=== PATIENT | female | born 1975 | race Caucasian/White ===

== ENCOUNTER 2018-01-08 22:57 | Emergency (ER) | payer SELFPAY ==
[~2018-01-08] VITALS: Ht 165.1 cm; Wt 63.5 kg
[2018-01-08 23:05] VITALS: BP 78/53
--- NOTE | 2018-01-08 23:29 | PHYS DOC ---
Adult General Chief Complaint Chief Complaint: SUSHILA HPI HPI Patient is a 42 year old female who presents with 9/10 sharp constant right shoulder pain that has been going on for a couple days. 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 She states she was seen at [facility] two weeks ago, had xray of the shoulder which showed the tumor is back. She states she has a scheduled MRI at [facility] in a couple days but her pain got worse today and Tramadol was not touching her pain, also the pain made her anxiety worse. Denies any injury. Review of Systems Review of Systems Constitutional: Denies fever or chills [] Musculoskeletal: Reports right shoulder pain Integument: Denies rash or skin lesions [] Neurologic: Denies headache, focal weakness or sensory changes [] All other systems were reviewed and found to be within normal limits, except as documented in this note. Current Medications Current Medications Current Medications Medications (Trade) Dose Ordered Sig/Guicho Start Time Stop Time Status Last Admin Dose Admin Acetaminophen/ Hydrocodone Bitart (Lortab 5/325) 1 tab 1X ONCE 01/08/18 23:30 01/08/18 23:34 DC Alprazolam (Xanax) 0.5 mg 1X ONCE 01/08/18 23:30 01/08/18 23:33 DC Allergies Allergies Allergies Coded Allergies Type Severity Reaction Last Updated Verified codeine Allergy Mild HIVES 01/08/18 Yes meperidine Allergy Mild HIVES 01/08/18 Yes morphine Allergy Mild HIVES 01/08/18 Yes Physical Exam Physical Exam Constitutional: Well developed, well nourished, no acute distress, non-toxic appearance. [] Skin: Warm, dry, no erythema, no rash. [] Back: No tenderness, no CVA tenderness. [] Extremities: Right shoulder with no obvious deformity, old healed surgical incision noted on the right anterior shoulder. Tenderness diffusely throughout the shoulder, full passive as well as active range of motion to the right shoulder. Adequate radial medial and ulnar sensation to the right upper extremity. +2 radial pulse. Cap refill less than 2 seconds the right fingers. Neurologic: Alert and oriented X 3, normal motor function, normal sensory function, no focal deficits noted. [] Psychologic: Flat affect. Tearful, appears anxious EKG EKG [] Radiology/Procedures Radiology/Procedures [] Course & Med Decision Making Course & Med Decision Making Pertinent Labs and Imaging studies reviewed. (See chart for details) This is a 42-year-old female patient presenting to the ED today complaining of right shoulder pain, has history of right shoulder tumor which was removed a couple years ago, per her statement she had an x-ray done at a different facility which showed the tumor is back. She is scheduled to do an MRI in a couple days. Patient is in no distress. She appears very anxious. She states her anxiety level went up as the pain went up. She is on tramadol at home with no relief. She was given prescription for Medrol dose pack and Robaxin for home use. Follow-up with her own doctor in 1-2 weeks. Shira Disclaimer Shira Disclaimer This electronic medical record was generated, in whole or in part, using a voice recognition dictation system. Departure Departure Impression: Primary Impression: Right shoulder pain Additional Impression: Anxiety Disposition: HOME, SELF-CARE Condition: STABLE Patient Instructions: Anxiety and Panic Attacks, [id number]-[id number], Shoulder Pain, [id number] Additional Instructions: You were evaluated in the emergency room for shoulder pain and anxiety. We sent you home with pain medications, take them as needed. Follow-up with your own doctor as soon as he can. Ensure you get the MRI done of your right shoulder as scheduled. Scripts Methylprednisolone (MEDROL) 4 Mg Tab.ds.pk 1 PKG PO UD, #1 PKG Prov: SUKUMAR ALVAREZ CHIEF TECHNOLOGIST 01/08/18 Methocarbamol (ROBAXIN) 500 Mg Tablet 1 TAB PO TID, #30 TAB Prov: SUKUMAR ALVAREZ CHIEF TECHNOLOGIST 01/08/18 Problem Qualifiers Primary Impression: Right shoulder pain Chronicity: acute Qualified Codes: M25.511 - Pain in right shoulder SUKUMAR ALVAREZ COREY Jan 08, 2018 23:29
[2018-01-08] MEDS ORDERED: HYDROcodone/APAP 5/325MG 1 TAB TABLET PO ONE (23:30)
[2018-01-08] MEDS ORDERED: ALPRAZolam 0.5 MG TABLET PO ONE (23:30)
[2018-01-08] MEDS ORDERED: METH4TAB2 PO (23:43)
[2018-01-08] MEDS ORDERED: METH-37 PO (23:43)
== END 2018-01-09 00:25 | disposition home or self-care (01) ==
LOC: ER 22:57
DX: M25.511 Pain in right shoulder (principal); F41.9 Anxiety disorder, unspecified; Z88.5 Allergy status to narcotic agent; Z88.8 Allergy status to other drugs, medicaments and biological substances
CPT/HCPCS: 99283

== ENCOUNTER 2019-05-18 09:04 | Day surgery (SDC) | payer OTHER ==
[~2019-05-18] VITALS: Ht 162.6 cm; Wt 52.6 kg
[~2019-05-18 09:04] MED LIST: ALBU2.5V8 INH; ALPR0.5T6 PO; BUPIVACAINE-EPI 0.25%-1:200000 MPF 30 ML VIAL. ONE; IV RINGERS,LACTATED 1000ML 1,000 ML IV SCH; METH-37 PO; METH4TAB2 PO; ONDANSETRON PF 4 MG/2 ML VIAL. IV PRN; PROC10TA57 PO; PROCHLORPERAZINE 10 MG/2 ML VIAL. IV PRN; TRAM100T12 PO; TRAM50TA PO; VILA10TA PO; ceFAZolin SODIUM IV Push 1 GM VIAL. IVP PRN
[2019-05-18] MEDS ORDERED: PROPOFOL 20 ML IV ONE (09:16)
[2019-05-18] MEDS ORDERED: DEXAMETHASONE SOD PHOS 4 MG/ML VIAL ONE (09:16)
[2019-05-18] MEDS ORDERED: ONDANSETRON PF 4 MG/2 ML VIAL. ONE (09:16)
[2019-05-18] MEDS ORDERED: fentaNYL PF VIAL 100 MCG/2 ML VIAL ONE ×2 (09:17→10:59)
[2019-05-18 10:03] LABS: CREATININE 0.6 mg/dL (0.6-1.0); GFR 108.1; POTASSIUM 3.9 mmol/L (3.5-5.1)
[2019-05-18 10:09] LABS: ALBUMIN 3.8 g/dL (3.4-5.0); ALBUMIN/GLOBULIN RATIO 1.3 (1.0-1.7); TOTAL BILIRUBIN 0.3 mg/dL (0.2-1.0); TOTAL PROTEIN 6.8 g/dL (6.4-8.2)
[2019-05-18] MEDS ORDERED: fentaNYL PF VIAL 100 MCG/2 ML VIAL IVP ONE ×2 (11:15→11:30)
[2019-05-18] MEDS ORDERED: HYDROcodone/APAP 5/325MG 1 TAB TABLET PO ONE (11:15)
[2019-05-18] MEDS ORDERED: IV RINGERS,LACTATED 1000ML 1,000 ML IV SCH (11:24)
[2019-05-18] MEDS ORDERED: ONDANSETRON PF 4 MG/2 ML VIAL. IV PRN (11:30)
[2019-05-18] MEDS ORDERED: LIDOCAINE 1% PF 2 ML VIAL. ID PRN (11:30)
[2019-05-18] MEDS ORDERED: PROCHLORPERAZINE 10 MG/2 ML VIAL. IV PRN (11:30)
--- NOTE | 2019-05-18 11:40 | PDOC4 ---
Operative Note Operative Note Date of Procedure: May 18, 2019 Pre-Op Diagnosis: 1. 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 Neoplasm of uncertain behavior - D48.9 right leg Post-Op Diagnosis: 1. 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 Neoplasm of uncertain behavior - D48.9 right leg Procedure: CPT 89540 Excision, tumor, soft tissue of leg or ankle area, subfascial (eg, intramuscular) less than 5 cm Surgeon: Franklin Lopez MD Anesthesia: General EBL: 25 mL Specimens Obtained: right leg mass Complications: none Drains: none Findings: firm mass or nodule, attached to the the tibialis anterior fascia and intramuscular at the tibialis anterior muscle. Indications for Procedure: This patient is a 44 -year-old with a painful mass on her right leg, which has not resolved with observation. A CT scan confirms a calcified lesion within the soft tissues of the tibialis anterior, with associated nerve symptoms. I discussed with her the potential risks of infection, neurovascular injury particularly numbness in the branches of the peroneal nerve, or motor weakness of the tibialis anterior with resection. The lesion is painful, bothersome when any clothes or bed sheets touch it, and I do recommend excisional biopsy. We discussed the risks benefits and alternatives and she desires to proceed. Procedure in Detail: The patient was identified in the preoperative holding area. The correct right lower extremity was marked by me. The patient was taken to the operating room where general anesthetic was used. The patient was positioned supine on the operating table. A tourniquet was applied to the upper portion of the limb. Preoperative antibiotics were given intravenously. A timeout procedure was performed. The limb was prepared circumferentially with ChloraPrep solution. An impervious stockinette and Coban were used over the foot and ankle. Sterile draping was used. An Esmarch bandage was used to exsanguinate the limb and the tourniquet was inflated to 300 mmHg. A 6 cm longitudinal incision was made centered over the palpable mass. Sharp dissection was used and Bovie electrocautery was used as needed for hemostasis. There was a firm nodule attached to the tibialis anterior fascia. I used a 15 blade scalpel and resected the lesion with a 5 mm margin including portion of the tibialis anterior fascia. The specimen was removed and sent in formalin for permanent pathology. There is no definitive nerve involvement despite her symptoms. A brief Betadine lavage was used followed by copious saline irrigation. The tourniquet was released. Bovie electrocautery was used for hemostasis. The skin edges were injected with 0.25% bupivacaine with epinephrine. The incision was irrigated a final time with saline. The incision was closed in layers with 3-0 Vicryl inverted interrupted sutures in the subcutaneous tissues. 3-0 Prolene horizontal mattress sutures were placed in the skin. Xeroform and a bulky s terile dressing were applied. Needle and sponge counts were correct area there were no apparent complications. FRANKLIN LOPEZ MD May 18, 2019 11:40
[2019-05-18 11:45] VITALS: BP 96/64
[2019-05-18] MEDS ORDERED: PROM25TA10 PO (11:45)
[2019-05-18] MEDS ORDERED: HYDR-2765 PO (11:45)
[2019-05-19 01:08] LABS: HEMOGLOBIN A1C 5.5 % (4.8-5.6)
--- NOTE | 2019-05-19 20:06 | PATHOLOGY ---
[facility] Accession Number: [id number] . 01 Material submitted: . leg - SOFT TISSUE MASS, RIGHT LEG. Modifiers: right . 01 Clinical history: . rt leg mass . 02 Diagnosis: Fibroadipose tissue, right leg soft tissue mass, excision: - Focal nodular calcinosis. . (JPM:mml; 05/19/2019) [facility] 05/19/2019 1904 Local . 02 Electronically signed: . Castillo Manzo MD, Pathologist NPI- [id number] . 01 Gross description: . The specimen is received in formalin, labeled "Marva Sepulveda, right leg mass" and consists of a segment of yellow lobulated tissue measuring 2.8 x 1.5 x 0.5 cm. Present within is a 0.5 x 0.5 cm area of calcification. The calcification is submitted in A1 following decalcification and the remainder of the specimen in A2. (SDY; 05/18/2019) SYU/SYU 05/18/2019 1725 Local . 02 Pathologist provided ICD-10: M79.89, R22.41 . 02 CPT . 898670, [id number] Specimen Comment: A courtesy copy of this report has been sent to [phone] Specimen Comment: Report sent to DR HERNÁNDEZ Performed at: 01 [facility] [address] [facility] [address], [place] [id number] MD Samy Romero MD Phone: [phone] Performed at: 02 [facility] [address] [place], [place] [id number] MD Castillo Manzo MD Phone: [phone]
== END 2019-05-18 12:03 | disposition home or self-care (01) ==
LOC: SURG 09:04
PROVIDERS: ATTEND Orthopaedic Surgery
DX: D48.1 Neoplasm of uncertain behavior of connective and other soft tissue (principal); M79.89 Other specified soft tissue disorders; J43.9 Emphysema, unspecified; F41.9 Anxiety disorder, unspecified; F32.9 Major depressive disorder, single episode, unspecified; Z87.891 Personal history of nicotine dependence; Z87.442 Personal history of urinary calculi; Z79.899 Other long term (current) drug therapy; Z98.890 Other specified postprocedural states; Z90.710 Acquired absence of both cervix and uterus; Z72.89 Other problems related to lifestyle
CPT/HCPCS: 27619; 36415; 80053; 82306; 83036; A7015; J0690; J1100; J2405; J2704; J3010

== ENCOUNTER 2019-10-12 11:30 | Emergency (ER) | payer OTHER ==
[~2019-10-12] VITALS: Ht 162.6 cm; Wt 50.0 kg
[~2019-10-12 11:30] MED LIST changes: -BUPIVACAINE-EPI 0.25%-1:200000 MPF 30 ML VIAL. ONE; +HYDR-2765 PO; -IV RINGERS,LACTATED 1000ML 1,000 ML IV SCH; -ONDANSETRON PF 4 MG/2 ML VIAL. IV PRN; -PROCHLORPERAZINE 10 MG/2 ML VIAL. IV PRN; +PROM25TA10 PO; -ceFAZolin SODIUM IV Push 1 GM VIAL. IVP PRN
[2019-10-12] MEDS ORDERED: oxyCODONE/APAP 5/325 1 TAB TABLET PO ONE (12:15)
--- NOTE | 2019-10-12 12:51 | RAD ---
CT HEAD WITHOUT CONTRAST 10/12/2019 12:01 PM Indication: Reason: FELL WHILE INTOXICATED, HEADACHE AND NECK PAIN / Spl. Instructions: / History: Comparison: None Procedure: Multidetector CT imaging of the head was performed without the administration of contrast. Findings: There is no evidence of acute intracranial hemorrhage. There is no evidence of acute territorial infarction. Please note that CT is limited for evaluation of acute ischemia. No mass effect or midline shift is identified . The ventricles and basilar cisterns have an appropriate appearance. No abnormal extra-axial fluid collections are seen. No acute osseous changes are identified. Metopic suture incidentally noted. Impression: No evidence of acute intracranial abnormality CT cervical spine without contrast. 10/12/2019 12:01 PM Indication:Reason: FELL WHILE INTOXICATED, HEADACHE AND NECK PAIN / Spl. Instructions: / History: Comparison Study: None Technique: Multidetector CT imaging of the cervical spine was obtained without administration of contrast. Findings: There is no evidence of acute fracture or alignment abnormality of the cervical. Vertebral body heights and disc spaces are maintained. The atlantoaxial articulation is within normal limits. There is no prevertebral soft tissue swelling. Soft tissues are otherwise unremarkable. No bony compromise of the spinal canal is seen. Impression: No evidence of acute fracture or alignment abnormality of the cervical spine CT DOSING PQRS STATEMENT: One or more of the following individualized dose reduction techniques were utilized for this examination: 1. Automated exposure control 2. Adjustment of the mA and/or kV according to patient size 3. Use of iterative reconstruction technique Electronically signed by: Jarod Richey MD (10/12/2019 12:48 PM) [id number]
--- NOTE | 2019-10-12 12:58 | RAD ---
5 views including frontal view of the chest bilateral views of each rib 10/12/2019 1:18 PM Indication: Reason: FELL WHILE INTOXICATED, RIBS PAIN, CHEST PAIN, SOA / Spl. Instructions: / History: Comparison: None Findings there is blunting of the right costophrenic angle which could represent small effusion versus elevation of right hemidiaphragm. There is no pneumothorax.. The cardiomediastinal silhouette and pulmonary vasculature are within normal limits. No displaced rib fractures are identified. No acute osseous changes are appreciated. No focal infiltrates are seen. Bullous changes in the lung apices noted. Impression: 1. No evidence of displaced rib fracture 2. Blunting of the right costophrenic angle which could be chronic/due to elevation of the hemidiaphragm, versus a small effusion. Consider follow-up two-view chest radiograph as clinically indicated Electronically signed by: Jarod Richey MD (10/12/2019 12:55 PM) [id number]
--- NOTE | 2019-10-12 13:08 | PHYS DOC ---
Past Medical History Past Medical History: Alcoholism, Anxiety, COPD Additional Past Medical Histor: BHASKAR-DANLOS SYNDROME, R SHOULDER "TUMOR" , Past Surgical History: Cholecystectomy, Hysterectomy Additional Past Surgical Histo: "NICKED BOWEL" W HYSTERECTOMY AND F/U SURG. Smoking Status: Current Every Day Smoker Alcohol Use: Heavy Drug Use: None General Adult EDM: Chief Complaint: RIB PAIN HPI: HPI: Patient is a 44 year old female who presented to ER today for evaluation of bilateral rib pain pain since October 05. Patient says she was alcoholic, she was sober for about 6 months then on October 05 she relapsed and went and drink bunch of alcohol. She woke up on the floor the next day did not remember have what happened. Patient noticed to have bruising on over chest and her leg area, she also, headache and neck pain. Patient continue to have ribs pain whenever she takes a deep breath so she came here for evaluation. Patient also complained of headache and neck pain, denies any abdominal pain, no nausea vomiting. Review of Systems: Review of Systems: Constitutional: Denies fever or chills. [] Eyes: Denies change in visual acuity. [] HENT: Denies nasal congestion or sore throat. [] Respiratory: Denies cough or shortness of breath. [Positive for bilateral rib pain Cardiovascular: Denies chest pain or edema. [] GI: Denies abdominal pain, nausea, vomiting, bloody stools or diarrhea. [] : Denies dysuria. [] Musculoskeletal: Denies back pain or joint pain. [] Integument: Denies rash. [] Neurologic: Positive for headache, no focal weakness or sensory changes. [] Endocrine: Denies polyuria or polydipsia. [] Lymphatic: Denies swollen glands. [] Psychiatric: Denies depression or anxiety. [] Heart Score: Risk Factors: Risk Factors: DM, Current or recent (<one month) smoker, HTN, HLP, family history of CAD, obesity. Risk Scores: Score 0 - 3: 2.5% MACE over next 6 weeks - Discharge Home Score 4 - 6: 20.3% MACE over next 6 weeks - Admit for Clinical Observation Score 7 - 10: 72.7% MACE over next 6 weeks - Early Invasive Strategies Current Medications: Current Medications Medications (Trade) Dose Ordered Sig/Guicho Start Time Stop Time Status Last Admin Dose Admin Oxycodone/ Acetaminophen (Percocet 5/325) 1 tab 1X ONCE 10/12/19 12:15 10/12/19 12:16 DC 10/12/19 12:12 1 TAB Allergies: Allergies: Allergies Coded Allergies Type Severity Reaction Last Updated Verified Sulfa (Sulfonamide Antibiotics) Allergy Severe RASH, FLU LIKE SYMPTOMS 05/17/19 Yes codeine Allergy Intermediate HIVES 05/17/19 Yes meperidine Allergy Intermediate HIVES 05/17/19 Yes morphine Allergy Intermediate HIVES 05/17/19 Yes Physical Exam: PE: Constitutional: Well developed, well nourished, no acute distress, non-toxic appearance. [] HENT: Normocephalic, atraumatic, bilateral external ears normal, oropharynx moist, no oral exudates, nose normal. [] Eyes: PERRLA, EOMI, conjunctiva normal, no discharge. [] Neck: Normal range of motion, no tenderness, supple, no stridor. [] Cardiovascular:Heart rate regular rhythm, no murmur [] Lungs & Thorax: Bilateral breath sounds clear to auscultation . Bilateral lower lateral rib tender to palpation, there is no crepitus, no bony deformity. Abdomen: Bowel sounds normal, soft, no tenderness, no masses, no pulsatile masses. [] Skin: Warm, dry, no erythema, no rash. [] Back: No tenderness, no CVA tenderness. [] Extremities: No tenderness, no cyanosis, no clubbing, ROM intact, no edema. [] Neurologic: Alert and oriented X 3, normal motor function, normal sensory function, no focal deficits noted. [] Psychologic: Affect normal, judgement normal, mood normal. [] Current Patient Data: Vital Signs: Vital Signs Date Time Temp Pulse Resp B/P (MAP) Pulse Ox O2 Delivery O2 Flow Rate FiO2 10/12/19 12:12 18 10/12/19 11:46 98.8 77 118/62 (80) 98 Room Air 98.8 EKG: EKG: [] Radiology/Procedures: Radiology/Procedures: [][facility] [address] [place] [address] IMAGING REPORT Signed PATIENT: JUANITO PONCE ACCOUNT: [id number] : 1975 LOCATION: ER AGE: 44 SEX: F EXAM STATUS: REG ER ORD. PHYSICIAN: ARIANA HINTON DO REASON: FELL WHILE INTOXICATED, RIBS PAIN, CHEST PAIN, SOA PROCEDURE: RIBS BILAT & PA CXR 4+V 5 views including frontal view of the chest bilateral views of each rib 10/12/2019 1:18 PM Indication: Reason: FELL WHILE INTOXICATED, RIBS PAIN, CHEST PAIN, SOA / Spl. Instructions: / History: Comparison: None Findings there is blunting of the right costophrenic angle which could represent small effusion versus elevation of right hemidiaphragm. There is no pneumothorax.. The cardiomediastinal silhouette and pulmonary vasculature are within normal limits. No displaced rib fractures are identified. No acute osseous changes are appreciated. No focal infiltrates are seen. Bullous changes in the lung apices noted. Impression: 1. No evidence of displaced rib fracture 2. Blunting of the right costophrenic angle which could be chronic/due to elevation of the hemidiaphragm, versus a small effusion. Consider follow-up two-view chest radiograph as clinically indicated Electronically signed by: Jarod Olson MD (10/12/2019 12:55 PM) [id number] DICTATED and SIGNED BY: JAROD OLSON MD DATE: 10/12/19 1255 [facility] [address] [place] [address] IMAGING REPORT Signed PATIENT: JUANITO PONCE ACCOUNT: [id number] : 1975 LOCATION: ER AGE: 44 SEX: F EXAM STATUS: REG ER ORD. PHYSICIAN: ARIANA HINTON DO REASON: FELL WHILE INTOXICATED, HEADACHE AND NECK PAIN PROCEDURE: CT HEAD AND CERVICAL SPINE WO CT HEAD WITHOUT CONTRAST 10/12/2019 12:01 PM Indication: Reason: FELL WHILE INTOXICATED, HEADACHE AND NECK PAIN / Spl. Instructions: / History: Comparison: None Procedure: Multidetector CT imaging of the head was performed without the administration of contrast. Findings: There is no evidence of acute intracranial hemorrhage. There is no evidence of acute territorial infarction. Please note that CT is limited for evaluation of acute ischemia. No mass effect or midline shift is identified . The ventricles and basilar cisterns have an appropriate appearance. No abnormal extra-axial fluid collections are seen. No acute osseous changes are identified. Metopic suture incidentally noted. Impression: No evidence of acute intracranial abnormality CT cervical spine without contrast. 10/12/2019 12:01 PM Indication:Reason: FELL WHILE INTOXICATED, HEADACHE AND NECK PAIN / Spl. Instructions: / History: Comparison Study: None Technique: Multidetector CT imaging of the cervical spine was obtained without administration of contrast. Findings: There is no evidence of acute fracture or alignment abnormality of the cervical. Vertebral body heights and disc spaces are maintained. The atlantoaxial articulation is within normal limits. There is no prevertebral soft tissue swelling. Soft tissues are otherwise unremarkable. No bony compromise of the spinal canal is seen. Impression: No evidence of acute fracture or alignment abnormality of the cervical spine CT DOSING PQRS STATEMENT: One or more of the following individualized dose reduction techniques were utilized for this examination: 1. Automated exposure control 2. Adjustment of the mA and/or kV according to patient size 3. Use of iterative reconstruction technique Electronically signed by: Jarod Olson MD (10/12/2019 12:48 PM) [id number] DICTATED and SIGNED BY: JAROD OLSON MD DATE: 10/12/19 1248 Course & Med Decision Making: Course & Med Decision Making Pertinent Labs and Imaging studies reviewed. (See chart for details) [] Dragon Disclaimer: Dragon Disclaimer: This electronic medical record was generated, in whole or in part, using a voice recognition dictation system. Departure Departure Impression: Primary Impression: Chest wall contusion Disposition: HOME, SELF-CARE Condition: STABLE Referrals: DIANDRA MEDINA MD (PCP) PLEASE FOLLOW UP WITH YOUR FAMILY DOCTOR NEEDED NEXT WEEK Patient Instructions: Chest Contusion Scripts Naproxen Sodium (ANAPROX DS) 550 Mg Tablet 1 TAB PO BID PRN for PAIN for 15 Days, #30 TAB 0 Refills Prov: ARIANA HINTON DO 10/12/19 Justicifation of Admission Dx: Justifications for Admission: Justification of Admission Dx: N/A ARIANA HINTON DO Oct 12, 2019 13:07
[2019-10-12] MEDS ORDERED: NAPR-682 PO (13:59)
[2019-10-12 14:25] VITALS: BP 98/55
== END 2019-10-12 14:25 | disposition home or self-care (01) ==
LOC: ER 11:30
DX: S20.212A Contusion of left front wall of thorax, initial encounter (principal); S20.211A Contusion of right front wall of thorax, initial encounter; M54.2 Cervicalgia; R51 Headache; F41.9 Anxiety disorder, unspecified; J44.9 Chronic obstructive pulmonary disease, unspecified; F10.10 Alcohol abuse, uncomplicated; F17.200 Nicotine dependence, unspecified, uncomplicated; Z90.710 Acquired absence of both cervix and uterus; Z90.49 Acquired absence of other specified parts of digestive tract; Z88.2 Allergy status to sulfonamides; Z88.6 Allergy status to analgesic agent; Z88.5 Allergy status to narcotic agent; Z88.8 Allergy status to other drugs, medicaments and biological substances; Z98.890 Other specified postprocedural states; X58.XXXA Exposure to other specified factors, initial encounter; Y93.89 Activity, other specified; Y92.89 Other specified places as the place of occurrence of the external cause; Y99.8 Other external cause status
CPT/HCPCS: 70450; 71111; 72125; 99285

== ENCOUNTER 2019-12-10 10:25 | Emergency (ER) | payer OTHER ==
[~2019-12-10] VITALS: Ht 162.6 cm; Wt 50.0 kg
[~2019-12-10 10:25] MED LIST changes: +NAPR-682 PO
[2019-12-10] MEDS ORDERED: KETOROLAC 30 MG/ML VIAL. IM ONE (11:15)
[2019-12-10] MEDS ORDERED: ONDANSETRON ODT 4 MG TAB.RAPDIS. PO ONE (11:15)
[2019-12-10] MEDS ORDERED: ORPHENADRINE CITRATE 60 MG/2 ML VIAL. IM ONE (11:15)
[2019-12-10] MEDS ORDERED: DEXAMETHASONE 4 MG TABLET PO ONE (11:15)
--- NOTE | 2019-12-10 11:25 | PHYS DOC ---
Past Medical History Past Medical History: Alcoholism, Anxiety, COPD Additional Past Medical Histor: HUONG-DANLOS SYNDROME, R SHOULDER "TUMOR" , H.PYLORI Past Surgical History: Cholecystectomy, Hysterectomy Additional Past Surgical Histo: "NICKED BOWEL" W HYSTERECTOMY AND F/U SURG. Smoking Status: Current Every Day Smoker Alcohol Use: None Additional Information: PT DENIES ALCOHOL USE. Drug Use: None Social History Narrative: OCCASIONAL MARIJUANA USE General Adult EDM: Chief Complaint: BACK INJURY HPI: HPI: Mrs. Sepulveda is a 44-year-old white female with a 3-day history of severe mid to low back pain with transient lower extremity paralysis, weakness, and numbness. Patient was walking her dog 3 days ago when she reports being knocked over by her dog she felt a pop in her mid low back and she immediately developed pain. This pain has been worsening since then. On presentation she reports 10 out of 10 sharp pain with episodes accentuating this pain. It is worsened by laying flat and standing with pressure on her spine, it is better laying on her side. She has some pain radiating to her lower extremity. She describes transient episodes of paralysis, while walking her legs will "give out". During these episodes of paralysis patient reports losing bladder control. Patient denies any fecal incontinence. Patient has a past medical history of a T12 wedge fracture in 2016 secondary to fall. Past medical history: Chronic pancreatitis, alcoholism. Huong-Danlos syndrome. Reported, PTSD secondary to hospital stay. Past surgical history: abdominal hysterectomy with complicating peritonitis. Cholecystectomy, appendectomy. Social history: 30-year smoking history 1/2 pack/day. Alcohol: Recovering alcoholic, rarely drinks now. Smokes marijuana twice weekly. Review of Systems: Review of Systems: Constitutional: Denies fever or chills Eyes: Denies redness or eye pain HENT: Denies nasal congestion or sore throat Respiratory: Denies cough or shortness of breath Cardiovascular: Denies chest pain or palpitations GI: Denies abdominal pain, nausea, or vomiting : Denies dysuria or hematuria. Patient denies any saddle anesthesia however she reports loss of bladder control during her episodes of transient paralysis. Musculoskeletal: Denies back pain or joint pain Integument: Denies rash or skin lesions Neurologic: Denies headache, focal weakness or sensory changes Complete systems were reviewed and found to be within normal limits, except as documented in this note. Allergies: Allergies: Allergies Coded Allergies Type Severity Reaction Last Updated Verified Sulfa (Sulfonamide Antibiotics) Allergy Severe RASH, FLU LIKE SYMPTOMS 05/17/19 Yes codeine Allergy Intermediate HIVES 05/17/19 Yes meperidine Allergy Intermediate HIVES 05/17/19 Yes morphine Allergy Intermediate HIVES 05/17/19 Yes Physical Exam: PE: Constitutional: Patient found in exceptional acute distress laying on side holding back and stomach. HENT: Normocephalic, atraumatic. Cranial nerves II through XII grossly intact bilaterally. Eyes: PERRL, EOMI, conjunctiva normal, no discharge Neck: Normal range of motion, no tenderness, supple. Negative Spurling's test. Lungs & Thorax: Bilateral breath sounds clear to auscultation, no wheezing Heart: Regular rate and rhythm, 1+/6 diastolic murmur best heard at left sternal border. S1 and S2 normal, S3 and S4 not heard. Abdomen: Soft, no tenderness. Bowel sounds present all 4 quadrants. Skin: Warm, dry, no erythema, no rash Back: Point tenderness over L1 spinous process, and transverse processes. Edematous swelling at the levels of L5-L1 on the left paraspinal musculature. Floridly positive straight leg raise. Extremities: No tenderness, ROM intact, no edema. 2+/4 DTRs located in all 4 extremities (patellar, Achilles, brachial radialis, biceps, triceps.) Neurologic: Alert and oriented X 3, normal motor function, normal sensory function, no focal deficits noted. Intact proprioception two-point tactile over the lower extremities. 4+/5 hip flexion extension strength, abduction and abduction. 5+/5 knee flexion extension. Psychologic: Patient appears exceptionally anxious. Heightened affect. Patient appears crying and moaning in pain. Current Patient Data: Vital Signs: Vital Signs Date Time Temp Pulse Resp B/P (MAP) Pulse Ox O2 Delivery O2 Flow Rate FiO2 12/10/19 10:35 97.5 75 16 90/53 (65) 98 Room Air 97.5 EKG: EKG: [] Radiology/Procedures: Radiology/Procedures: [] Course & Med Decision Making: Course & Med Decision Making 44-year-old white female with a 3-day history of low back pain. Differential diagnosis: Lumbar radiculopathy, acute compression fracture, cauda equina syndrome. Repeat lumbar x-ray, MRI. IV Dilaudid. Shira Disclaimer: Dragyamilka Disclaimer: This electronic medical record was generated, in whole or in part, using a voice recognition dictation system. Departure Departure Impression: Primary Impression: Acute exacerbation of chronic low back pain Disposition: HOME, SELF-CARE Condition: STABLE Referrals: DIANDRA MEDINA MD (PCP) ALEXANDRE HAINES MD Patient Instructions: Back, Compression Fracture, Chronic Back Pain Scripts Hydrocodone/Apap 5-325 (NORCO 5-325 TABLET) 1 Each Tablet 0.5-1 TAB PO PRN Q6HRS PRN for PAIN, #10 TAB 0 Refills Prov: CHRISTOPHER PIMENTEL DO 12/10/19 Justicifation of Admission Dx: Justifications for Admission: Justification of Admission Dx: N/A CHRISTOPHER PIMENTEL DO Dec 10, 2019 11:25
[2019-12-10 11:48] LABS: BILIRUBIN,URINE NEGATIVE (NEG); CLARITY,URINE CLEAR; COLOR,URINE YELLOW; NITRITE,URINE NEGATIVE (NEG); PROTEIN,URINE NEGATIVE (NEG-TRACE); UROBILINOGEN,URINE 0.2 mg/dL (0.2 mg/dL)
[2019-12-10 11:59] LABS: BACTERIA,URINE MODERATE /HPF (0-FEW); SQUAMOUS EPITHELIAL CELL,UR MANY /LPF
[2019-12-10 12:00] VITALS: BP 92/47
[2019-12-10] MEDS ORDERED: fentaNYL PF VIAL 100 MCG/2 ML VIAL IM ONE (12:15)
--- NOTE | 2019-12-10 12:56 | RAD ---
L-spine 3 views INDICATION: Pain to upper lumbar region COMPARISON: L-spine MRI C5 09/25/2019 FINDINGS: Normal alignment. Stable anterior wedge compression deformity at T12. No new fracture. No aggressive osseous lesions. No significant degenerative changes of the lumbar spine. Sacral iliac joints and visualized hips are unremarkable. Soft tissues show moderate formed stool in the large bowel. IMPRESSION: No acute osseous abnormality in the lumbar spine. Stable appearing mild anterior superior wedge compression fracture at T12, chronic. Electronically signed by: Mindy Kaminski MD (12/10/2019 12:53 PM) [id number]
[2019-12-10] MEDS ORDERED: HYDR-3164 PO (13:06)
[2019-12-10] MEDS ORDERED: HYDROcodone/APAP 5/325MG 1 TAB TABLET PO ONE (13:15)
== END 2019-12-10 13:12 | disposition home or self-care (01) ==
LOC: ER 10:25
DX: G89.29 Other chronic pain (principal); M54.5 Low back pain; R20.0 Anesthesia of skin; R53.1 Weakness; F41.9 Anxiety disorder, unspecified; J44.9 Chronic obstructive pulmonary disease, unspecified; F12.90 Cannabis use, unspecified, uncomplicated; K86.1 Other chronic pancreatitis; Z90.710 Acquired absence of both cervix and uterus; Z90.89 Acquired absence of other organs
CPT/HCPCS: 72100; 81001; 87086; 96372; 99284; J1885; J2360; J3010

== ENCOUNTER 2020-02-06 13:02 | Emergency (ER) | payer OTHER ==
[~2020-02-06] VITALS: Ht 162.6 cm; Wt 50.0 kg
[~2020-02-06 13:02] MED LIST changes: +HYDR-3164 PO
[2020-02-06 13:30] VITALS: BP 110/65
[2020-02-06] MEDS ORDERED: HYDROmorphone 2 MG/ML VIAL IM ONE (13:30)
[2020-02-06] MEDS ORDERED: ONDANSETRON ODT 4 MG TAB.RAPDIS. ONE (13:35)
--- NOTE | 2020-02-06 13:40 | PHYS DOC ---
Past Medical History Past Medical History: Alcoholism, Anxiety, COPD, Sciatica Additional Past Medical Histor: BHASKAR-DANLOS SYNDROME, R SHOULDER "TUMOR" , H.PYLORI Past Surgical History: Cholecystectomy, Hysterectomy Additional Past Surgical Histo: "NICKED BOWEL" W HYSTERECTOMY AND F/U SURG. Smoking Status: Current Every Day Smoker Alcohol Use: None Drug Use: Marijuana General Adult EDM: Chief Complaint: LOWER BACK PAIN OR INJURY HPI: HPI: Patient is a 44 year old female with history of alcoholism, anxiety, sciatica, who presents to the ED today complaining of chronic generalized neck, mid and low back pain that has been going on since this morning. Patient states she took her tizanidine with no relief. Denies any injuries. Reports pain radiating to bilateral lower extremities with some numbness and tingling to the lower extremities bilaterally. Denies any loss of bowel/bladder function. States most of her pain is on certain movements. Patient is requesting to stay in the hospital for her pain. Review of Systems: Review of Systems: Constitutional: Denies fever or chills. [] Eyes: Denies change in visual acuity. [] HENT: Denies nasal congestion or sore throat. [] Respiratory: Denies cough or shortness of breath. [] Cardiovascular: Denies chest pain or edema. [] GI: Denies abdominal pain, nausea, vomiting, bloody stools or diarrhea. [] : Denies dysuria. [] Musculoskeletal: Reports neck pain, mid and low back pain Integument: Denies rash. [] Neurologic: Denies headache, focal weakness or sensory changes. [] Psychiatric: Denies depression or anxiety. [] Heart Score: Risk Factors: Risk Factors: DM, Current or recent (<one month) smoker, HTN, HLP, family history of CAD, obesity. Risk Scores: Score 0 - 3: 2.5% MACE over next 6 weeks - Discharge Home Score 4 - 6: 20.3% MACE over next 6 weeks - Admit for Clinical Observation Score 7 - 10: 72.7% MACE over next 6 weeks - Early Invasive Strategies Current Medications: Current Medications Medications (Trade) Dose Ordered Sig/Guicho Start Time Stop Time Status Last Admin Dose Admin Hydromorphone HCl (Dilaudid) 1 mg 1X ONCE 02/06/20 13:30 02/06/20 13:31 DC Ondansetron HCl (Zofran Odt) 4 mg STK-MED ONCE 02/06/20 13:35 02/06/20 13:35 DC Allergies: Allergies: Allergies Coded Allergies Type Severity Reaction Last Updated Verified Sulfa (Sulfonamide Antibiotics) Allergy Severe RASH, FLU LIKE SYMPTOMS 05/17/19 Yes codeine Allergy Intermediate HIVES 05/17/19 Yes meperidine Allergy Intermediate HIVES 05/17/19 Yes morphine Allergy Intermediate HIVES 05/17/19 Yes Physical Exam: PE: Constitutional: Well developed, well nourished, no acute distress, non-toxic appearance. [] HENT: Normocephalic, atraumatic, bilateral external ears normal, oropharynx moist, no oral exudates, nose normal. [] Eyes: PERRLA, EOMI, conjunctiva normal, no discharge. [] Neck: Normal range of motion, no tenderness, supple, no stridor. [] Cardiovascular:Heart rate regular rhythm, no murmur [] Lungs & Thorax: Bilateral breath sounds clear to auscultation [] Abdomen: Bowel sounds normal, soft, no tenderness, no masses, no pulsatile masses. [] Skin: Warm, dry, no erythema, no rash. [] Back: Diffuse paraspinal muscle tenderness throughout the lumbar spine, thoracic spine, no midline lumbar spine or thoracic spine tenderness, no CVA tenderness. [] Extremities: No tenderness, no cyanosis, no clubbing, ROM intact, no edema. [] Neurologic: Alert and oriented X 3, normal motor function, normal sensory function, no focal deficits noted. [] Psychologic: Flat affect EKG: EKG: [] Radiology/Procedures: Radiology/Procedures: [] Course & Med Decision Making: Course & Med Decision Making Pertinent Labs and Imaging studies reviewed. (See chart for details) This is a 44-year-old female patient presenting to the ED today with chronic neck mid and low back pain. Requesting to be kept in the emergency room or hospital until her pain is completely gone. Informed patient this is a chronic issue and has no cuada equina syndrome and hence does not need hospital admission. She had an incidental fever when she was checked in the ED entry, she had no fever in the room. She refused any work-up related to the fever specifically x-ray or COVID-19 testing. She was instructed to follow-up with her own PCP. Shira Disclaimer: Shira Disclaimer: This electronic medical record was generated, in whole or in part, using a voice recognition dictation system. Departure Departure Impression: Primary Impression: Chronic back pain Qualified Codes: M54.5 - Low back pain; G89.29 - Other chronic pain Disposition: 01 DC HOME SELF CARE/HOMELESS Condition: STABLE Referrals: DIANDRA MEDINA MD (PCP) follow up in 1 week Patient Instructions: Back Pain, Adult Additional Instructions: You were seen for chronic back pain. Please follow-up with your own doctor in 1 to 2 weeks. Scripts Diclofenac Potassium (DICLOFENAC POTASSIUM) 50 Mg Tablet 1 TAB PO BID, #20 TAB 0 Refills Prov: SUKUMAR ALVAREZ APRN 02/06/20 Methylprednisolone (MEDROL) 4 Mg Tab.ds.pk 1 PKG PO UD, #1 PKG Prov: SUKUMAR ALVAREZ APRN 02/06/20 SUKUMAR ALVAREZ APRN Feb 06, 2020 13:40
[2020-02-06] MEDS ORDERED: ONDANSETRON ODT 4 MG TAB.RAPDIS. PO ONE (13:45)
[2020-02-06] MEDS ORDERED: DICL50TA2 PO (13:53)
[2020-02-06] MEDS ORDERED: METH4TAB2 PO (13:53)
== END 2020-02-06 14:11 | disposition home or self-care (01) ==
LOC: ER 13:02
DX: G89.29 Other chronic pain (principal); M54.5 Low back pain; M54.2 Cervicalgia; R20.2 Paresthesia of skin; F41.9 Anxiety disorder, unspecified; J44.9 Chronic obstructive pulmonary disease, unspecified; F17.200 Nicotine dependence, unspecified, uncomplicated; F12.90 Cannabis use, unspecified, uncomplicated; F10.10 Alcohol abuse, uncomplicated; Z90.710 Acquired absence of both cervix and uterus; Z90.49 Acquired absence of other specified parts of digestive tract; Z98.890 Other specified postprocedural states; Z88.2 Allergy status to sulfonamides; Z88.5 Allergy status to narcotic agent; Z88.6 Allergy status to analgesic agent; Z88.8 Allergy status to other drugs, medicaments and biological substances
CPT/HCPCS: 96372; 99283; J1170

== ENCOUNTER → 2020-03-21 | Outpatient (CLI) | payer OTHER ==
[~2020-03-21] MED LIST changes: +DICL50TA2 PO
--- NOTE | 2020-03-22 09:43 | SLEEP ---
DATE OF STUDY: 03/21/2020 SLEEP STUDY REFERRED BY: Paz Abdi MD PRIMARY CARE PHYSICIAN: Humble Metzger MD The patient is 44 years old, who weighs 118 pounds with a BMI of 20. The patient's [place] score was 9. The patient underwent diagnostic sleep study performed at [facility]. During the night study, the patient spent 411 minutes in bed and slept for 393 minutes with a sleep efficiency of 96%. Sleep latency was 4 minutes with a REM latency of 202 minutes. Sleep architecture showed normal stage 1 and stage 2 sleep, increased N3 sleep, which was 29% of the total sleep time and reduced REM sleep, which was 13% of the total sleep time. During the night study, the patient had 1 obstructive apnea, 1 mixed apnea, 12 central apneas and 5 hypopneas. The patient's AHI was 3 per hour, supine AHI 1 per hour and REM AHI of 15 per hour. EKG monitoring revealed normal sinus rhythm. No sustained arrhythmias observed. Average heart rate was 61 beats per minute. Nocturnal oximetry study revealed a mean oxygen saturation of 93% with the lowest of 81%. A 10% of the time, oxygen saturation remained between 80% and 89%. No significant PLMS seen. Due to low AHI, the patient did not meet the split night criteria for CPAP initiation. IMPRESSION: 1. Overall, no clinically significant sleep disorder breathing. The patient's apnea hypopnea index for the entire night was 3 per hour. Mild rapid eye movement related hypopneas were observed at an apnea hypopnea index of 15 per hour. 2. Mild sustained nocturnal hypoxia, likely related to hypoventilation. 3. No clinically significant periodic limb movements. RECOMMENDATIONS: 1. The patient did not meet the split night criteria for CPAP initiation due to low AHI. 2. Avoid SCARF GLUER depressants. 3. If clinical suspicion for other disorders, such as narcolepsy is high, then consider doing multiple sleep latency tests. 4. Consider ruling out the effect of medication contributing to the patient's hypersomnia as well. ESTER KEYES MD DR: PAXTON/dayton JOB#: [id number] / [id number] PAZ Rosenberg MD, GALEN MD MTDD
== END ==
LOC: SLPLAB 19:08
PROVIDERS: ATTEND Internal Medicine Pulmonary Disease
DX: G47.33 Obstructive sleep apnea (adult) (pediatric) (principal)
CPT/HCPCS: 95810

== ENCOUNTER 2021-09-04 10:04 | Emergency (ER) | payer SELFPAY ==
[~2021-09-04] VITALS: Ht 162.6 cm; Wt 56.8 kg
[2021-09-04] MEDS ORDERED: HYDROcodone/APAP 5/325MG 1 TAB TABLET PO ONE (10:45)
[2021-09-04] MEDS ORDERED: ORPHENADRINE CITRATE 60 MG/2 ML VIAL. IM ONE (10:45)
[2021-09-04] MEDS ORDERED: ONDANSETRON ODT 4 MG TAB.RAPDIS. PO ONE (10:45)
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
[2021-09-04 11:49] LABS: BARBITURATES NEG (NEG); BENZODIAZEPINES NEG (NEG); CANNABINOIDS POS (NEG); COCAINE NEG (NEG); METHADONE NEG (NEG); OPIATES NEG (NEG); PHENCYCLIDINE NEG (NEG)
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
[2021-09-04 11:56] LABS: AMPHETAMINE/METHAMPHETAMINE NEG (NEG)
[2021-09-04] MEDS ORDERED: fentaNYL PF VIAL 100 MCG/2 ML VIAL IVP ONE ×2 (12:00→13:45)
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
[2021-09-04 12:09] LABS: BACTERIA,URINE FEW /HPF (0-FEW); RBC,URINE OCC /HPF (0-2)
[2021-09-04 12:49] VITALS: BP 93/56
[2021-09-04] MEDS ORDERED: hydrOXYzine 10 MG TABLET PO ONE (13:00)
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
[2021-09-04] MEDS ORDERED: OXYC-325 PO (13:12)
== END 2021-09-04 14:04 | disposition home or self-care (01) ==
LOC: ER 10:04
DX: S82.201A Unspecified fracture of shaft of right tibia, initial encounter for closed fracture (principal); S82.401A Unspecified fracture of shaft of right fibula, initial encounter for closed fracture; S22.41XA Multiple fractures of ribs, right side, initial encounter for closed fracture; J44.9 Chronic obstructive pulmonary disease, unspecified; F17.200 Nicotine dependence, unspecified, uncomplicated; Y08.89XA Assault by other specified means, initial encounter; Y93.89 Activity, other specified; Y92.89 Other specified places as the place of occurrence of the external cause; Y99.8 Other external cause status
CPT/HCPCS: 29515; 36415; 70450; 70486; 71101; 72125; 73562; 73590; 73610; 73630; 73700; 80307; 81001; 84484; 87077; 87086; 96372; 96374; 96375; 96376; 99285; G0480; J2060; J2360; J3010